=== PATIENT | female | born 1940 | race Hispanic/Latino ===

== ENCOUNTER → 2023-11-26 | Outpatient (CLI) | payer MEDICARE ==
[2023-11-26] MEDS: REGADENOSON 0.4 MG/5 ML PF SYG IVP ONE (14:19)
== END | disposition home or self-care (01) ==
LOC: SHCH 08:15
PROVIDERS: ATTEND Internal Medicine Cardiovascular Disease
DX: R00.2 Palpitations (principal); R06.00 Dyspnea, unspecified; I48.91 Unspecified atrial fibrillation; I49.5 Sick sinus syndrome; J45.909 Unspecified asthma, uncomplicated; Z98.890 Other specified postprocedural states; R07.89 Other chest pain; Z79.899 Other long term (current) drug therapy
CPT/HCPCS: 78452; 96374; 93017; J2785; A9500 ×2